=== PATIENT | male | born 1940 | race Caucasian/White ===

== ENCOUNTER → 2017-08-25 | Day surgery (SDC) | payer MEDICARE, BC ==
[~2017-08-25] MED LIST: Dextrose 5%-0.45% NaCl 1,000 ML IV SCH; Midazolam 1 MG/ML 2 ML SDV IV ONE; Midazolam 1 MG/ML 2 ML SDV ONE; Sodium Chloride 0.9% 10 ML Syringe FLUSH PRN; fentaNYL 100 MCG/2 ML SDV IV ONE; fentaNYL 100 MCG/2 ML SDV ONE
--- NOTE | 2017-08-25 09:21 | OR ---
DATE: 08/25/2017 PROCEDURES PERFORMED: Total colonoscopy, NBI, and cold snare polypectomy. INSTRUMENT USED: CF-H180AL Olympus video colonoscope. PREMEDICATIONS: Fentanyl 100 mcg intravenous and Versed 3 mg intravenous. Nasal O2 cannula. The procedure was done under pulse oximetry, BP recording, and alarm security or surveillance monitor. INDICATION: The patient with rectal bleeding. Colonoscopic examination is done for detection of any polypoid lesions and removal, endoscopic hemostasis therapy if needed. DESCRIPTION OF PROCEDURE: Initial rectal exam was unremarkable. Rigid anoscopy showed small internal hemorrhoids without bleeding from them. The colonoscope was passed with ease. Few scattered diverticula were noted in the distal left colon along with deformity. The scope was passed with ease up to the ileocecal area, photographs were taken of the normal-appearing cecum identified by landmarks of appendiceal orifice and double-bulged ileocecal folds. No bleeding was noted from any of the visualized areas at the commencement of the examination. No stricture. No vascular ectasia. No large isolated ulcerations seen. No evidence of diffuse inflammatory bowel disease in the form of friability, contact bleeding, or ulcerations. Probing the proximal sides of folds and flexures, using adequate distention and clearing of the stool material, withdrawal of the scope was made. In the distal sigmoid colon, 3 mm sized benign-appearing polyp was noted, NBI views were obtained, cold snare polypectomy was done, the tissue was retrieved and sent for histopathology. No bleeding was noted from any of the visualized areas at the completion of examination. IMPRESSION: 1. Internal hemorrhoids. 2. Diverticulosis. 3. Diminutive sigmoid polyp. The patient tolerated the procedure well. [facility] /[id number]
== END ==
LOC: DL.ENDO 06:49
PROVIDERS: ATTEND Internal Medicine Gastroenterology
DX: K63.5 Polyp of colon (principal); K64.8 Other hemorrhoids; K57.30 Diverticulosis of large intestine without perforation or abscess without bleeding; E66.09 Other obesity due to excess calories; I12.9 Hypertensive chronic kidney disease with stage 1 through stage 4 chronic kidney disease, or unspecified chronic kidney disease; E11.22 Type 2 diabetes mellitus with diabetic chronic kidney disease; N18.9 Chronic kidney disease, unspecified; E78.5 Hyperlipidemia, unspecified; Z95.2 Presence of prosthetic heart valve; Z98.890 Other specified postprocedural states
CPT/HCPCS: 45385; J2250; J3010; J7042; 88305

== ENCOUNTER 2018-10-02 00:48 | Emergency (ER) | payer MEDICARE, BC ==
[2018-10-02 01:33] LABS: CHLORIDE,CL 106 mmol/L (101-111); SODIUM,NA 137 mmol/L (135-145)
--- NOTE | 2018-10-02 01:45 | EDM.PDOC ---
ED HPI GENERAL MEDICAL PROBLEM - General Chief Complaint: Cardiovascular Problem Stated Complaint: HEART ISSUES [id number] Time Seen by Provider: 10/02/18 00:52 Source of Information: Reports: Patient History Limitations: Reports: No Limitations - History of Present Illness INITIAL COMMENTS - FREE TEXT/NARRATIVE: ED with c/o intermittent sharp pains to left chest under breast, describe as shock like. NO SOB, No previous MD, No GI sx. No seating with episodes. Not associated with activity. - Related Data Allergies Allergy/AdvReac Type Severity Reaction Status Date / Time No Known Allergies Allergy Verified 10/02/18 00:55 Home Meds: Home Meds Aspirin [Ecotrin] 325 mg PO DAILY 08/24/17 [History] Carvedilol [Coreg] 3.125 mg PO DAILY 08/24/17 [History] Dutasteride [Avodart] 0.5 mg PO DAILY 08/24/17 [History] Furosemide [Lasix] 20 mg PO DAILY 08/24/17 [History] Potassium Chloride [Klor-Con 10] 10 meq PO DAILY 08/24/17 [History] Simvastatin [Zocor] 20 mg PO DAILY 08/24/17 [History] Tamsulosin [Tamsulosin 24 Hr] 0.4 mg PO DAILY 08/24/17 [History] metFORMIN [Glucophage] 500 mg PO DAILY 08/24/17 [History] Past Medical History HEENT History: Reports: Other (See Below) Other HEENT History: impaired hearing Cardiovascular History: Reports: Heart Valve Replacement, High Cholesterol, Hypertension Respiratory History: Reports: None Gastrointestinal History: Reports: None Genitourinary History: Reports: Chronic Renal Insuffiency, Prostate Disorder Musculoskeletal History: Reports: None Neurological History: Reports: None Psychiatric History: Reports: None Endocrine/Metabolic History: Reports: Diabetes, Type II, Obesity/BMI 30+ Hematologic History: Reports: None Immunologic History: Reports: None Oncologic (Cancer) History: Reports: Other (See Below) Other Oncologic History: skin ca Dermatologic History: Reports: None - Infectious Disease History Infectious Disease History: Reports: Measles - Past Surgical History Head Surgeries/Procedures: Reports: None HEENT Surgical History: Reports: None Cardiovascular Surgical History: Reports: Valve Replacement GI Surgical History: Reports: None Male Surgical History: Reports: Prostate Biopsy Endocrine Surgical History: Reports: None Social & Family History - Family History Family Medical History: Noncontributory - Tobacco Use Smoking Status *Q: Unknown Ever Smoked - Caffeine Use Caffeine Use: Reports: Coffee Caffeine Use Comment: 3 cups daily - Recreational Drug Use Recreational Drug Use: No ED ROS GENERAL - Review of Systems Review Of Systems: ROS reveals no pertinent complaints other than HPI. ED EXAM, GENERAL - Physical Exam Exam: See Below Exam Limited By: No Limitations General Appearance: Alert, No Apparent Distress, Anxious Eye Exam: Bilateral Eye: EOMI Ears: Normal External Exam, Hearing Loss Nose: Normal Inspection Throat/Mouth: Normal Inspection Head: Atraumatic, Normocephalic Neck: Normal Inspection Respiratory/Chest: No Respiratory Distress, Lungs Clear, Normal Breath Sounds Cardiovascular: Normal Peripheral Pulses, Regular Rate, Rhythm, Extra Beats ( rare PVC). No: No Edema (trace) GI/Abdominal: Normal Bowel Sounds, Soft Extremities: Normal Inspection Neurological: Alert, Oriented, Normal Cognition Psychiatric: Anxious (mild) Skin Exam: Warm, Dry, Intact, Normal Color Course - Vital Signs Last Recorded V/S: Last Vital Signs Temp 97.5 F 10/02/18 00:52 Pulse 70 10/02/18 00:52 Resp 18 10/02/18 00:52 BP 152/89 H 10/02/18 00:52 Pulse Ox 96 10/02/18 00:52 - Orders/Labs/Meds Labs: Laboratory Tests 10/02/18 10/02/18 10/02/18 Range/Units 01:07 01:07 01:07 WBC 7.1 (5.0-10.0) 10^3/uL RBC 4.57 L (4.6-6.2) 10^6/uL Hgb 14.3 (14.0-18.0) g/dL Hct 41.7 (40.0-54.0) % MCV 91.2 (80-100) fL MCH 31.3 (27.0-34.0) pg MCHC 34.3 (33.0-35.0) g/dL Plt Count 210 (150-450) 10^3/uL Neut % (Auto) 51.9 (42.2-75.2) % Lymph % (Auto) 33.5 (20.5-50.1) % [place] % (Auto) 12.0 H (2-8) % Eos % (Auto) 2.2 (1.0-3.0) % Baso % (Auto) 0.4 (0.0-1.0) % PT (9.0-12.0) SEC INR (0.9-1.2) D-Dimer, Quantitative 111 (0-400) ng/mL Sodium 137 (135-145) mmol/L Potassium 4.0 (3.6-5.0) mmol/L Chloride 106 (101-111) mmol/L Carbon Dioxide 23.0 (21.0-31.0) mmol/L Anion Gap 12.0 BUN 20 H (7-18) mg/dL Creatinine 1.2 (0.6-1.3) mg/dL Est Cr Clr Drug Dosing 51.54 mL/min Estimated GFR (MDRD) 58 BUN/Creatinine Ratio 16.66 Glucose 98 (74-105) mg/dL Calcium 8.6 (8.4-10.2) mg/dl Magnesium 1.9 (1.8-2.5) mg/dL Total Bilirubin 0.8 (0.2-1.0) mg/dL AST 14 (10-42) IU/L ALT 13 (10-60) IU/L Alkaline Phosphatase 32 L (42-121) IU/L Troponin I < 0.02 (0.00-0.02) ng/ml B-Natriuretic Peptide 39 (0-100) pg/ml Total Protein 6.6 L (6.7-8.2) g/dl Albumin 3.7 (3.2-5.5) g/dl Globulin 2.9 Albumin/Globulin Ratio 1.28 Amylase 50 (28-100) U/L Lipase 30 (22-51) U/L 10/02/18 10/02/18 Range/Units 01:07 05:05 WBC (5.0-10.0) 10^3/uL RBC (4.6-6.2) 10^6/uL Hgb (14.0-18.0) g/dL Hct (40.0-54.0) % MCV (80-100) fL MCH (27.0-34.0) pg MCHC (33.0-35.0) g/dL Plt Count (150-450) 10^3/uL Neut % (Auto) (42.2-75.2) % Lymph % (Auto) (20.5-50.1) % [place] % (Auto) (2-8) % Eos % (Auto) (1.0-3.0) % Baso % (Auto) (0.0-1.0) % PT 10.0 (9.0-12.0) SEC INR 1.0 (0.9-1.2) D-Dimer, Quantitative (0-400) ng/mL Sodium (135-145) mmol/L Potassium (3.6-5.0) mmol/L Chloride (101-111) mmol/L Carbon Dioxide (21.0-31.0) mmol/L Anion Gap BUN (7-18) mg/dL Creatinine (0.6-1.3) mg/dL Est Cr Clr Drug Dosing mL/min Estimated GFR (MDRD) BUN/Creatinine Ratio Glucose (74-105) mg/dL Calcium (8.4-10.2) mg/dl Magnesium (1.8-2.5) mg/dL Total Bilirubin (0.2-1.0) mg/dL AST (10-42) IU/L ALT (10-60) IU/L Alkaline Phosphatase (42-121) IU/L Troponin I < 0.02 (0.00-0.02) ng/ml B-Natriuretic Peptide (0-100) pg/ml Total Protein (6.7-8.2) g/dl Albumin (3.2-5.5) g/dl Globulin Albumin/Globulin Ratio Amylase (28-100) U/L Lipase (22-51) U/L - Radiology Interpretation Free Text/Narrative:: [facility] Final Radiology Report Call: [phone] assistance Online chat: [email or web address] Name: CAREY BELL Age: 78Years M Date: 10/02/2018 SSN: -- : [id number] Study: XR CHEST 1 VIEW FRONTAL Requesting Physician: TRINA MCCALLUM Images: 1 Addl Studies: Provided Clinical History: Contrast: Contrast Medium: Contrast Amount: Contrast Method: CONFIDENTIALITY STATEMENT This report is intended only for use by the referring physician, and only in accordance with law. If you received this in error, call [phone]. Page 1 of 1 EXAM: XR Chest, 1 View EXAM DATE/TIME: 10/02/2018 1:03 AM CLINICAL HISTORY: 78 years old, male; Signs and symptoms; Other: Chest pain TECHNIQUE: Imaging protocol: XR of the chest, 1 view. COMPARISON: No relevant prior studies available. FINDINGS: Lungs: Unremarkable. No consolidation. Pleural space: Unremarkable. No evidence of pneumothorax. Heart/Mediastinum: Unremarkable. Heart size within normal limits for technique. Bones/joints: Unremarkable. IMPRESSION: No acute findings. Thank you for allowing us to participate in the care of your patient. Dictated and Authenticated by: Jason Pa MD 10/02/2018 1:34 AM Central Time ([place] & [place]) - Re-Assessments/Exams Free Text/Narrative Re-Assessment/Exam: 10/02/18 02:53 Notes same felling left lower chest of "twitching" denies pain, no SOB. Area is palpable lasting approximately 1 minute.Movement does not correspond with HR. Rare PVC on monitor patient not noting sensation with these. BP stable. Reapeat troponin and EKG normal. Results revieed with patient prior to discharge. Departure - Departure Time of Disposition: 05:41 Disposition: Home, Self-Care 01 Condition: Good Clinical Impression: Palpitations, Muscle twitch Instructions: Palpitations Referrals: Maikol Swain MD [Primary Care Provider] - Forms: ED Department Discharge Additional Instructions: follow up in clinic this week light activity urgent follow up if dizzy, chest pain ,short of breath, feeling like heart racing
== END 2018-10-02 06:05 | disposition home or self-care (01) ==
LOC: DL.ED 00:48
DX: R00.2 Palpitations (principal); R25.3 Fasciculation; I12.9 Hypertensive chronic kidney disease with stage 1 through stage 4 chronic kidney disease, or unspecified chronic kidney disease; N18.9 Chronic kidney disease, unspecified; E78.00 Pure hypercholesterolemia, unspecified; E11.22 Type 2 diabetes mellitus with diabetic chronic kidney disease; Z79.82 Long term (current) use of aspirin; Z79.84 Long term (current) use of oral hypoglycemic drugs; Z79.899 Other long term (current) drug therapy
CPT/HCPCS: 36415; 71045; 80053; 82150; 83690; 83735; 83880; 84484; 85025; 85379; 85610; 93005; 99285-25

== ENCOUNTER 2020-02-13 07:36 | Emergency (ER) | payer MEDICARE, BC ==
[~2020-02-13 07:36] MED LIST changes: -Dextrose 5%-0.45% NaCl 1,000 ML IV SCH; -Midazolam 1 MG/ML 2 ML SDV IV ONE; -Midazolam 1 MG/ML 2 ML SDV ONE; -fentaNYL 100 MCG/2 ML SDV IV ONE; -fentaNYL 100 MCG/2 ML SDV ONE
--- NOTE | 2020-02-13 07:51 | CT ---
PROCEDURE INFORMATION: Exam: CT Head Without Contrast Exam date and time: 02/13/2020 7:30 AM Age: 79 years old Clinical indication: Weakness, extremity and weakness, facial; Left; Additional info: Stroke code TECHNIQUE: Imaging protocol: Computed tomography of the head without contrast. Radiation optimization: All CT scans at this facility use at least one of these dose optimization techniques: automated exposure control; mA and/or kV adjustment per patient size (includes targeted exams where dose is matched to clinical indication); or iterative reconstruction. Other technique: STROKE PROTOCOL was implemented. COMPARISON: No relevant prior studies available. FINDINGS: Brain: There is an expected degree of age-related atrophy and chronic white matter ischemic changes. No acute intra-axial or extra-axial hemorrhage appreciated. [place] Stroke Program Early CT Score (ASPECTS) = 10. Ventricles: No ventriculomegaly. Bones/joints: Unremarkable. No acute fracture. Paranasal sinuses: Visualized sinuses are unremarkable. No fluid levels. Mastoid air cells: Visualized mastoid air cells are well aerated. Soft tissues: Unremarkable. IMPRESSION: 1. There is an expected degree of age-related atrophy and chronic white matter ischemic changes. 2. No acute intra-axial or extra-axial hemorrhage appreciated. 3. [place] Stroke Program Early CT Score (ASPECTS) = 10. COMMENTS: If the symptoms that lead to this examination persist or worsen, or there is concern for CVA (which may not manifeston CT for the first 24-48 hours), close interval follow-up MRI (or followup CT if the patient cannot undergo MRI evaluation) could provide additional information; only if clinically indicated.
[2020-02-13] MEDS ORDERED: Ondansetron 4 MG/2 ML SDV IV ONE (08:02)
--- NOTE | 2020-02-13 08:11 | CR ---
PROCEDURE INFORMATION: Exam: XR Chest, 1 View Exam date and time: 02/13/2020 8:01 AM Age: 79 years old Clinical indication: Other: Stroke code TECHNIQUE: Imaging protocol: XR of the chest Views: 1 view. COMPARISON: CR Chest 1V Frontal 10/02/2018 1:03 AM FINDINGS: Lungs: Linear atelectasis at the left lung base. Pleural space: Unremarkable. No pleural effusion. No pneumothorax. Heart/Mediastinum: Unremarkable. No cardiomegaly. Bones/joints: There are sternal wires consistent with previous sternotomy incision. IMPRESSION: Linear atelectasis at the left lung base.
[2020-02-13 08:36] LABS: ANION GAP 14.3 mEq/L (7-13); CHLORIDE,CL 105 mmol/L (98-107); SODIUM,NA 140 mmol/L (136-145)
--- NOTE | 2020-02-19 20:01 | EDM.PDOC ---
ED HPI GENERAL MEDICAL PROBLEM - General Chief Complaint: Neuro Symptoms/Deficits Stated Complaint: STOKE CODE Time Seen by Provider: 02/13/20 07:45 Source of Information: Reports: Patient, EMS History Limitations: Reports: Altered Mental Status - History of Present Illness INITIAL COMMENTS - FREE TEXT/NARRATIVE: Patient comes emergency department today from home with concerns of left-sided weakness. This patient woke up about 3:00 this morning and was without complaints. Suddenly and rather abruptly about 1 hour at or about 4:00 this morning he suddenly had weakness to his left arm and his left leg confusion unsteadiness and dizziness. He was quite concerned at this time so he contacted the ambulance. EMS notified us of the concern for a possible stroke prior to th e patient's arrival a stroke code was called and the stroke team was available upon the patient's arrival and he went immediately to the CT scanner. Once patient returned from the CT scanner he relates that he has left-sided weakness and numbness his speech is difficult and he is somewhat confused unsteady and lightheaded. No recent falls trauma head injury or surgeries. No chest pain no shortness of breath or difficulty breathing. No recent fever or chills. No covert exposure COVID symptoms. No abdominal pain nausea or vomiting. No hematuria dysuria or urinary frequency. No black or tarry stools. Treatments PAIL TESTER: Reports: IV/IO - Related Data Allergies Allergy/AdvReac Type Severity Reaction Status Date / Time No Known Allergies Allergy Verified 10/02/18 00:55 Home Meds: Home Meds Aspirin [Ecotrin EC] 325 mg PO DAILY 08/24/17 [History] Dutasteride [Avodart] 0.5 mg PO DAILY 08/24/17 [History] Furosemide [Lasix] 20 mg PO DAILY 08/24/17 [History] Potassium Chloride [Klor-Con 10] 10 meq PO DAILY 08/24/17 [History] Simvastatin [Zocor] 20 mg PO DAILY 08/24/17 [History] Tamsulosin [Tamsulosin 24 Hr] 0.4 mg PO DAILY 08/24/17 [History] carvediloL [Coreg] 3.125 mg PO DAILY 08/24/17 [History] metFORMIN [Glucophage] 500 mg PO DAILY 08/24/17 [History] Past Medical History HEENT History: Reports: Other (See Below) Other HEENT History: impaired hearing Cardiovascular History: Reports: Heart Valve Replacement, High Cholesterol, Hypertension Respiratory History: Reports: None Gastrointestinal History: Reports: None Genitourinary History: Reports: Chronic Renal Insuffiency, Prostate Disorder Musculoskeletal History: Reports: None Neurological History: Reports: None Psychiatric History: Reports: None Endocrine/Metabolic History: Reports: Diabetes, Type II, Obesity/BMI 30+ Hematologic History: Reports: None Immunologic History: Reports: None Oncologic (Cancer) History: Reports: Other (See Below) Other Oncologic History: skin ca Dermatologic History: Reports: None - Infectious Disease History Infectious Disease History: Reports: Measles - Past Surgical History Head Surgeries/Procedures: Reports: None HEENT Surgical History: Reports: None Cardiovascular Surgical History: Reports: Valve Replacement GI Surgical History: Reports: None Male Surgical History: Reports: Prostate Biopsy Endocrine Surgical History: Reports: None Social & Family History - Family History Family Medical History: Noncontributory - Tobacco Use Smoking Status *Q: Never Smoker Second Hand Smoke Exposure: No - Caffeine Use Caffeine Use: Reports: None Caffeine Use Comment: 3 cups daily - Recreational Drug Use Recreational Drug Use: No ED ROS GENERAL - Review of Systems Review Of Systems: Comprehensive ROS is negative, except as noted in HPI. ED EXAM, NEURO - Physical Exam Exam: See Below Exam Limited By: No Limitations General Appearance: Alert, WD/WN, No Apparent Distress Eye Exam: Bilateral Eye: EOMI, Nystagmus (He has horizontal nystagmus bilaterally), PERRL Ears: Normal External Exam, Normal Canal Nose: Normal Inspection Throat/Mouth: Normal Inspection, Normal Lips Neck: Normal Inspection, Supple Respiratory/Chest: No Respiratory Distress, Lungs Clear, Normal Breath Sounds, No Accessory Muscle Use, Chest Non-Tender Cardiovascular: Normal Peripheral Pulses, Regular Rate, Rhythm GI/Abdominal: Normal Bowel Sounds, Soft, Non-Tender Neurological: Alert, Ataxia (He has ataxia of his left arm and his left leg), Other (He has a left facial droop. His left upper extremity is a 3/5 his left lower extremity is a 4/5. Normal sensation on the left side of his body as well. [place] is somewhat thick and slurred. NIH stroke scale of 7) Back Exam: Normal Inspection Extremities: Normal Inspection, Normal Range of Motion, Normal Capillary Refill Psychiatric: Anxious Skin Exam: Warm, Dry, Intact, Normal Color, No Rash EKG INTERPRETATION EKG Date: 02/13/20 Time: 07:47 Rhythm: Other (First-degree AV block) Rate (Beats/Min): 63 [place]: Normal P-Wave: Present QRS: Normal ST-T: Normal QT: Normal Course - Vital Signs Last Recorded V/S: Last Vital Signs Temp 97.2 F 02/13/20 08:00 Pulse 65 02/13/20 08:00 Resp 16 02/13/20 08:00 BP 174/62 H 02/13/20 08:00 Pulse Ox 99 02/13/20 08:00 - Orders/Labs/Meds Labs: Laboratory Tests 02/13/20 02/13/20 02/13/20 Range/Units 07:58 07:58 07:58 WBC 7.2 (5.0-10.0) 10^3/uL RBC 4.61 (4.6-6.2) 10^6/uL Hgb 14.1 (14.0-18.0) g/dL Hct 41.3 (40.0-54.0) % MCV 89.6 (80-100) fL MCH 30.6 (27.0-34.0) pg MCHC 34.1 (33.0-35.0) g/dL Plt Count 204 (150-450) 10^3/uL Neut % (Auto) 77.9 H (42.2-75.2) % Lymph % (Auto) 13.7 L (20.5-50.1) % [place] % (Auto) 7.3 (2-8) % Eos % (Auto) 0.8 L (1.0-3.0) % Baso % (Auto) 0.3 (0.0-1.0) % PT 10.4 (9.0-12.0) SEC INR 1.1 (0.9-1.2) APTT 24.0 (22.0-34.0) SEC Sodium 140 (136-145) mmol/L Potassium 4.3 (3.5-5.1) mmol/L Chloride 105 (98-107) mmol/L Carbon Dioxide 25 (21-32) mmol/L Anion Gap 14.3 H (7-13) mEq/L BUN 19 H (7-18) mg/dL Creatinine 1.40 H (0.70-1.30) mg/dL Est Cr Clr Drug Dosing TNP Estimated GFR (MDRD) 49 BUN/Creatinine Ratio 13.6 (No establ ref range) Glucose 158 H (74-99) mg/dL Calcium 8.6 (8.5-10.1) mg/dL Magnesium 2.0 (1.8-2.4) mg/dL Total Bilirubin 0.9 (0.2-1.0) mg/dL AST 7 L (15-37) U/L ALT 13 L (16-63) U/L Alkaline Phosphatase 45 L (46-116) U/L Troponin I < 0.017 (0.000-0.056) ng/mL C-Reactive Protein 0.4 (0.0-0.9) mg/dL Total Protein 7.0 (6.4-8.2) g/dL Albumin 3.6 (3.4-5.0) g/dL Globulin 3.4 Albumin/Globulin Ratio 1.1 Meds: Medications Discontinued Medications Generic Name Dose Route Start Last Admin Trade Name Freq PRN Reason Stop Dose Admin Alteplase, Recombinant 70 mg 02/13/20 08:30 02/13/20 08:38 Activase IV 70 mg .INFUSION YOAN Administration Alteplase, Recombinant 7.8 mg 02/13/20 08:30 02/13/20 08:37 Activase IVPUSH 7.8 mg .BOLUS YOAN Administration Ondansetron HCl 4 mg 02/13/20 08:02 02/13/20 08:05 Zofran IV 02/13/20 08:03 4 mg ONETIME ONE Administration Sodium Chloride 10 ml 02/13/20 07:25 02/13/20 08:07 Saline Flush FLUSH 10 ml ASDIRECTED PRN Administration Keep Vein Open - Radiology Interpretation Free Text/Narrative:: CT of the head stroke protocol per radiology there is an expected degree of age- related atrophy and chronic white matter ischemic changes. Cute intra-axial or extra-axial hemorrhage appreciated. [place] stroke program early CT score of 1 0. - Re-Assessments/Exams Free Text/Narrative Re-Assessment/Exam: As previously stated up a stroke code was activated prior to the patient's arrival and was available upon the patient's arrival. He is clearly having some left-sided deficits that can be life altering. CT scan of the head per radiology no acute hemorrhage. Sugar is appropriate. I called and spoke with Dr. Solorzano at [facility] in [place] HPI ER COURSE and the time frame and concerns were relayed to him. He recommends TPA and transfer to the stroke center in [place]. I discussed the concerns of a stroke with the patient and a family member in the room. We are getting tight on time but he still within the 4-1/2-hour window for TPA peripherally. He does not have any contraindications or reasons to not receive TPA. Risk and benefits to include resolution of his stroke arresting of his stroke life altering threatening intracranial hemorrhage were explained to the patient. His questions were answered and verbal consent was obtained. Was given IV TPA bolus and infusion per protocol. And he was transported by [facility] to [facility] stroke center in [place]. His NIH stroke scale was 7 on discharge. Departure - Departure Time of Disposition: 08:15 Disposition: DC/Tfer to Acute Hospital 02 Clinical Impression: Cerebrovascular accident (CVA) Qualifiers: CVA mechanism: unspecified Qualified Code(s): I63.9 - Cerebral infarction, unspecified - Discharge Information Referrals: PCP,None [Primary Care Provider] - Forms: ED Department Discharge Sepsis Event Note (ED) - Evaluation Sepsis Screening Result: No Definite Risk
== END 2020-02-13 08:50 ==
LOC: DL.ED 07:36
DX: I63.9 Cerebral infarction, unspecified (principal); E78.00 Pure hypercholesterolemia, unspecified; I12.9 Hypertensive chronic kidney disease with stage 1 through stage 4 chronic kidney disease, or unspecified chronic kidney disease; N18.9 Chronic kidney disease, unspecified; E11.22 Type 2 diabetes mellitus with diabetic chronic kidney disease; E66.9 Obesity, unspecified; Z79.82 Long term (current) use of aspirin; Z79.84 Long term (current) use of oral hypoglycemic drugs; Z79.899 Other long term (current) drug therapy; Z68.26 Body mass index [BMI] 26.0-26.9, adult
CPT/HCPCS: 36415; 37195; 70450; 71045; 80053; 83735; 84484; 85025; 85610; 85730; 86140; 93005; 93010; 96374; 99285; J2405; J2997